=== PATIENT | male | born 1990 | race Two or more races ===

== ENCOUNTER 2019-09-19 03:50 | Emergency (ER) | payer OTHER ==
[2019-09-19 03:55] VITALS: BP 136/82; PULSE 93; TEMP 97.4; BMI 32.1
[2019-09-19] MEDS ORDERED: KETOROLAC TROMETHAMINE 60 MG/2 ML VIAL ONE (04:01)
[2019-09-19] MEDS ORDERED: KETOROLAC TROMETHAMINE 60 MG/2 ML VIAL IM ONE (04:01)
--- NOTE | 2019-09-19 04:05 | PDOC ---
History of Present Illness - General Chief Complaint: Pain, Acute Stated Complaint: NECK PAIN, LEFT ARM PAIN BACK PAIN Time Seen by Provider: 09/19/19 03:57 History Source: Patient Exam Limitations: No Limitations - History of Present Illness Initial Comments: 09/19/19 04:00 This is a 29-year-old male who comes in complaining of neck pain radiating to his left arm and shoulder. Patient said he felt the pain when he was working out yesterday. Patient is a moderately obese male. Patient denies any cough, congestion, shortness of breath or any other complaints. Allergies: as per nursing notes Past Medical History: none Social history: Lives with family. No smoking. No alcohol. No illicit drugs. Surgical history: None General: No fevers or chills, no weakness, no weight loss HEENT: No change in vision. No sore throat,. No ear pain CardioVascular: no chest discomfort. No shortness of breath Respiratory:No cough, or wheezing. Gastrointestinal: no nausea, vomiting, diarrhea or constipation, No rectal bleeding Genitourinary: No dysuria, hematuria, or frequency Musculoskeletal: No joint or muscle pain or swelling, neck pain radiating to left arm Neurologic: No headache, vertigo, dizziness or loss of consciousness Psychiatric: nor depression Skin: No rashes or easy bruising Endocrine: no increased thirst or abnormal weight change Allergic: no skin or latex allergy All other systems reviewed and normal Exam: General: Well-nourished well-developed individual, no acute distress HEENT: Throat: Normal, tonsils normal, no erythema or exudate Neck: Supple, no meningeal signs, no lymphadenopathy, pain reproduced on palpation Eyes::Pupils equal reactive and round, extraocular motion intact Chest: Nontender to palpation Cardiac: S1-S2 normal, regular rate and rhythm, no murmurs rubs or gallops Respiratory: Lungs clear to auscultation bilateral Abdomen: Soft, nondistended, normal bowel sounds, there is no tenderness on palpation diffusely Extremities: Warm, dry, no cyanosis, clubbing, or edema, left upper extremity with tenderness and reproducible pain on palpation Skin: No rashes Neuro: Alert and oriented x3, CN II - XII intact, nonfocal exam with normal strength, normal sensation, normal reflexes, normal gait, Psych: Normal mood and affect Past History - Medical History Allergies/Adverse Reactions: Allergies Allergy/AdvReac Type Severity Reaction Status Date / Time cinnamon Allergy Severe Swelling Verified 09/19/19 03:55 Home Medications: Ambulatory Orders Cyclobenzaprine HCl 10 mg PO BID 5 Days #14 tablet 09/19/19 Naproxen 500 mg PO BID 5 Days #15 tablet 09/19/19 - Psycho-Social/Smoking History Smoking History: Never smoked Have you smoked in the past 12 months: No Information on smoking cessation initiated: No Hx Alcohol Use: No Drug/Substance Use Hx: No *Physical Exam - Vital Signs Last Vital Signs Temp Pulse Resp BP Pulse Ox 97.4 F L 93 H 20 136/82 99 09/19/19 03:53 09/19/19 03:53 09/19/19 03:53 09/19/19 03:53 09/19/19 03:53 Discharge - Discharge Information Problems reviewed: Yes Clinical Impression/Diagnosis: Cervical strain, acute Condition: Stable Disposition: HOME - Admission No - Additional Discharge Information Prescriptions: Cyclobenzaprine HCl 10 mg PO BID 5 Days #14 tablet Naproxen 500 mg PO BID 5 Days #15 tablet - Follow up/Referral - Patient Discharge Instructions Additional Instructions: For the pain take naproxen 1 tablet twice a day with food do not take on an empty stomach. For the muscle spasm take Flexeril 1 tablet twice a day. Return to the emergency department immediately with ANY new, persistent or worsening symptoms. Continue any medications as previously prescribed by your physician. You should follow up with your primary doctor as soon as possible regarding today's emergency department visit. . Please make sure your doctor reviews the results of your emergency evaluation. Thank you for coming to the Emergency Department today for your care. It was a pleasure to see you today. Please note that your evaluation is INCOMPLETE until you follow-up with your doctor. - Post Discharge Activity
--- NOTE | 2019-09-21 14:05 | EKG ---
Test Reason : Blood Pressure : / mmHG Vent. Rate : 086 BPM Atrial Rate : 086 BPM P-R Int : 140 ms QRS Dur : 070 ms QT Int : 370 ms P-R-T Axes : 064 029 026 degrees QTc Int : 442 ms NORMAL SINUS RHYTHM NORMAL ECG NO PREVIOUS ECGS AVAILABLE Confirmed by EDWIN MOCK MD ([id number]) on 09/21/2019 2:05:18 PM Referred By: DR MORGAN Confirmed By:EDWIN MOCK MD
== END 2019-09-19 04:17 | disposition home or self-care (01) ==
LOC: EDBD → FER 03:50
PROC: 3E023GC Introduction of Other Therapeutic Substance into Muscle, Percutaneous Approach (ICD-10-PCS; principal; 2019-09-19)
DX: S16.1XXA Strain of muscle, fascia and tendon at neck level, initial encounter (principal); X50.9XXA Other and unspecified overexertion or strenuous movements or postures, initial encounter
CPT/HCPCS: 93005; 93010; 99285-25